=== PATIENT | male | born 1995 | race Caucasian/White ===

== ENCOUNTER → 2017-10-27 | Outpatient (CLI) | payer OTHER ==
--- NOTE | 2017-10-27 08:20 | DIAGNOSTIC IMAGING REPORT ---
ABDOMEN LIMITED (US) HISTORY: 22 years-old Male ELEVATED ALT MEASUREMENT acutely elevated LFTs COMPARISON: None available TECHNIQUE: Multiple real-time sonographic images of the abdominal right upper quadrant were obtained assessing grayscale appearance and color flow FINDINGS: Pancreas is well-seen secondary to obscuring bowel gas and patient body habitus. Increased echogenicity of the liver with poor through transmission suggests fatty infiltration. Areas of fatty sparing noted near the brady hepatis. No intrahepatic biliary ductal dilation or focal hepatic mass lesions. Gallbladder is unremarkable without shadowing cholelithiasis. No gallbladder wall thickening or pericholecystic fluid. Common bile duct is normal, 4 mm. Imaged right kidney is unremarkable without hydronephrosis. IMPRESSION: 1. Suggested fatty infiltration of the liver. 2. No cholelithiasis or sonographic evidence of acute cholecystitis. 3. No biliary ductal dilation. The above report was generated using voice recognition software. It may contain grammatical, syntax or spelling errors. Electronically signed by: Kush Leahy M.D. 10/27/2017 8:19 AM Dictated Date/Time: 10/27/2017 8:14 AM
== END | disposition home or self-care (01) ==
LOC: C.ULTR 07:49
PROVIDERS: ATTEND Family Medicine
DX: R74.0 Nonspecific elevation of levels of transaminase and lactic acid dehydrogenase [LDH] (principal)